=== PATIENT | female | born 1990 | race Asian ===

== ENCOUNTER 2019-08-10 17:13 | Emergency (ER) | payer OTHER ==
[~2019-08-10] VITALS: Ht 157.5 cm; Wt 59.0 kg
[2019-08-10 17:15] VITALS: BP_SYST 114
--- NOTE | 2019-08-10 17:20 | NUR ---
Patient triaged and placed in waiting room. VSS and patient appears in no acute distress at this time. Accompanied by FAMILY, awaiting available bed, and MD notified of need for MSE.
--- NOTE | 2019-08-10 18:44 | NUR ---
BROUGHT BACK TO BED #8 AND REPORT GIVEN TO HARINDER
--- NOTE | 2019-08-10 18:55 | NUR ---
Pt brought in by . Pt awake, alert, oriented x4. 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 Pt states headache and chest wall pain with cough. Pt states that she has had symptoms for approx 10 days, and now has same symptoms. Pt denies chest pain, shortness of breath, diarrhea, dizziness, vomiting. Pt denies any other medical complaint at this time. Pt resting comfortably in bed, vss.
[2019-08-10] MEDS ORDERED: IBUPROFEN 600 MG TABLET PO ONE (20:15)
--- NOTE | 2019-08-10 20:40 | NUR ---
Dr. Parker bedside for Pt eval
[2019-08-10 21:00] VITALS: BP_SYST 114
--- NOTE | 2019-08-10 21:00 | NUR ---
Patient given written and verbal discharge instructions and verbalizes understanding. ER MD discussed with patient the results and treatment provided. Patient in stable condition. ID arm band removed. Rx of Bromfed given. Patient educated on pain management and to follow up with PMD. Pain Scale 0/10 Opportunity for questions provided and answered. Medication side effect fact sheet provided.
== END 2019-08-10 21:00 | disposition home or self-care (01) ==
LOC: SED 17:13
DX: J06.9 Acute upper respiratory infection, unspecified (principal)
CPT/HCPCS: 71045; 81002; 99283

== ENCOUNTER 2020-11-10 10:03 | Outpatient (CLI) | payer OTHER | END 2020-11-10 20:39 | disposition home or self-care (01) | LOC: SRD 10:03 | PROVIDERS: ATTEND Specialist | DX: N97.9 Female infertility, unspecified (principal) | CPT/HCPCS: 58340; 74740; C1751; Q9967 ==